=== PATIENT | female | born 1980 | race African-American/Black ===

== ENCOUNTER 2016-09-26 16:58 | Emergency (ER) | payer MEDICARE, OTHER ==
[~2016-09-26] VITALS: Ht 170.2 cm; Wt 156.5 kg
[~2016-09-26 16:58] MED LIST: ABILIFY; CLON1TAB3 PO; HYDR-971 PO; HYDR12.58 PO; LISI-334 PO; NAPR500T PO; NORE0.355 PO; OXYC-328 PO; PALI3TAB2 PO; PRESTIQ; SENN1TAB70 PO; TRAZADON PO
[2016-09-26] MEDS ORDERED: diphenhydrAMINE HCL 25 MG CAPSULE PO ONE (17:30)
[2016-09-26] MEDS ORDERED: METOCLOPRAMIDE 10 MG TABLET. PO ONE (17:30)
[2016-09-26] MEDS ORDERED: cloNIDine HCL 0.1 MG TABLET PO ONE (17:30)
--- NOTE | 2016-09-26 17:34 | PHYS DOC ---
Past Medical History Past Medical History: Hypertension Additional Past Medical Histor: BORDERLINE PERSONALITY DISORDER, insomnia, social anxiety, Past Surgical History: Cholecystectomy Alcohol Use: None Drug Use: None Adult General Chief Complaint Chief Complaint: HEADACHE HPI HPI Patient is a 36 year old female sits to the emergency department stating that she has had a headache for the last 3 months. She states that she has history of high blood pressure although his been taking medications for the last year. Patient states that her headache has been so bad that it's a pressure type feeling in which she has been unable to function. Patient states that she has sensitivity lights but denies any sensitivity to sound. She also states that she has sensitivity to smells that causes her to be nauseated. She also states that she's been having some chest pressure and chest discomfort that goes up into her right neck. Patient states occasionally she has shortness of air difficulty breathing although she does not have that today. She also continues to state that she does have some history of swelling in her lower extremities although today that that has not been the case. Patient states she has taken aspirin for the pain and discomfort. She states this is not relieved any of her headache. Patient states that her mother brought her here to the emergency department. Review of Systems Review of Systems Constitutional: Denies fever or chills [] Eyes: Denies change in visual acuity, redness, or eye pain [] HENT: Denies nasal congestion or sore throat [] Respiratory: Denies cough or shortness of breath [] Cardiovascular: No additional information not addressed in HPI [] GI: Denies abdominal pain, nausea, vomiting, bloody stools or diarrhea [] : Denies dysuria or hematuria [] Musculoskeletal: Denies back pain or joint pain [] Integument: Denies rash or skin lesions [] Neurologic: headache, denies focal weakness or sensory changes [] Endocrine: Denies polyuria or polydipsia [] Current Medications Current Medications Current Medications Medications (Trade) Dose Ordered Sig/Brendon Start Time Stop Time Status Last Admin Dose Admin Clonidine HCl (Catapres) 0.2 mg 1X ONCE 09/26/16 17:30 09/26/16 17:35 DC 09/26/16 18:23 0.2 MG Diphenhydramine HCl (Benadryl) 25 mg 1X ONCE 09/26/16 17:30 09/26/16 17:35 DC 09/26/16 18:23 25 MG Metoclopramide HCl (Reglan) 10 mg 1X ONCE 09/26/16 17:30 09/26/16 17:35 DC 09/26/16 18:23 10 MG Allergies Allergies Allergies Coded Allergies Type Severity Reaction Last Updated Verified No Known Drug Allergies 05/03/15 No Physical Exam Physical Exam Constitutional: Well developed, well nourished, no acute distress, non-toxic appearance. [] HENT: Normocephalic, atraumatic, bilateral external ears normal, oropharynx moist, no oral exudates, nose normal. Bilateral tympanic membranes appear to be normal throat with no erythematous no drainage or discharge noted no exudate. Eyes: PERRLA, EOMI, conjunctiva normal, no discharge. [] Neck: Normal range of motion, no tenderness, supple, no stridor. [] Cardiovascular:Heart rate regular rhythm, no murmur [] Lungs & Thorax: Bilateral breath sounds clear to auscultation [] Skin: Warm, dry, no erythema, no rash. [] Back: No tenderness Extremities: No tenderness, no cyanosis, no clubbing, ROM intact, no edema. [] Neurologic: Alert and oriented X 3, normal motor function, normal sensory function, no focal deficits noted. Numerous 2 through 12 intact. No nystagmus noted although patient states that during the finger to nose increases her headache and cause problems with her eyes. It was noted to have equal cloth tester bilaterally. Psychologic: Affect normal, judgement normal, mood normal. [] Current Patient Data Vital Signs Vital Signs Date Time Temp Pulse Resp B/P (MAP) Pulse Ox O2 Delivery O2 Flow Rate FiO2 09/26/16 18:38 72 13 131/75 (93) 99 09/26/16 17:40 Room Air 09/26/16 17:12 98.2 98.2 Lab Values Laboratory Tests Test 09/26/16 16:26 09/26/16 17:14 09/26/16 17:55 POC Urine HCG, Qualitative Hcg negative (Negative) Urine Color Yellow Urine Clarity Cloudy Urine pH 7.0 Urine Specific [place] <=1.005 Urine Protein Negative mg/dL (NEG-TRACE) Urine Glucose (UA) Negative mg/dL (NEG) Urine Ketones (Stick) Negative mg/dL (NEG) Urine Blood Large (NEG) Urine Nitrite Negative (NEG) Urine Bilirubin Negative (NEG) Urine Urobilinogen Dipstick 0.2 mg/dL (0.2 mg/dL) Urine Leukocyte Esterase Small (NEG) Urine RBC Tntc /HPF (0-2) Urine WBC Occ /HPF (0-4) Urine Squamous Epithelial Cells Occ /LPF Urine Amorphous Sediment Present /HPF Urine Bacteria Few /HPF (0-FEW) White Blood Count 6.3 x10^3/uL (4.0-11.0) Red Blood Count 4.21 x10^6/uL (3.50-5.40) Hemoglobin 11.4 g/dL (12.0-15.5) L Hematocrit 35.1 % (36.0-47.0) L Mean Corpuscular Volume 84 fL (79-100) Mean Corpuscular Hemoglobin 27 pg (25-35) Mean Corpuscular Hemoglobin Concent 32 g/dL (31-37) Red Cell Distribution Width 17.3 % (11.5-14.5) H Platelet Count 383 x10^3/uL (140-400) Neutrophils (%) (Auto) 56 % (31-73) Lymphocytes (%) (Auto) 26 % (24-48) Monocytes (%) (Auto) 11 % (0-9) H Eosinophils (%) (Auto) 6 % (0-3) H Basophils (%) (Auto) 1 % (0-3) Neutrophils # (Auto) 3.5 x10^3uL (1.8-7.7) Lymphocytes # (Auto) 1.7 x10^3/uL (1.0-4.8) Monocytes # (Auto) 0.7 x10^3/uL (0.0-1.1) Eosinophils # (Auto) 0.4 x10^3/uL (0.0-0.7) Basophils # (Auto) 0.1 x10^3/uL (0.0-0.2) Sodium Level 139 mmol/L (136-145) Potassium Level 4.0 mmol/L (3.5-5.1) Chloride Level 105 mmol/L (98-107) Carbon Dioxide Level 27 mmol/L (21-32) Anion Gap 7 (6-14) Blood Urea Nitrogen 7 mg/dL (7-20) Creatinine 1.0 mg/dL (0.6-1.0) Estimated GFR (Cockcroft-Gault) 76.8 BUN/Creatinine Ratio 7 (6-20) Glucose Level 98 mg/dL (70-99) Calcium Level 8.8 mg/dL (8.5-10.1) Total Bilirubin 0.3 mg/dL (0.2-1.0) Aspartate Amino Transferase (AST) 13 U/L (15-37) L Alanine Aminotransferase (ALT) 18 U/L (14-59) Alkaline Phosphatase 76 U/L (46-116) Troponin I Quantitative < 0.017 ng/mL (0.000-0.055) Total Protein 7.3 g/dL (6.4-8.2) Albumin 3.4 g/dL (3.4-5.0) Albumin/Globulin Ratio 0.9 (1.0-1.7) L Laboratory Tests 09/26/16 17:55 Laboratory Tests 09/26/16 17:55 EKG EKG EKG was completed at 1739 with the sinus rhythm noted with a heart rate of 74 no STEMI noted per Dr Sal[] Radiology/Procedures Radiology/Procedures [facility] [address] [place] [address] IMAGING REPORT Signed PATIENT: LESA HANCOCK ACCOUNT: [id number] : 1980 LOCATION: ER AGE: 36 SEX: F EXAM STATUS: REG ER ORD. PHYSICIAN: VIRGIL MONTALVO [employer] REASON: elevated BP and headache PROCEDURE: CT HEAD WO CONTRAST CT head without intravenous contrast History: Migraine for 3 months. Comparison: None. Technique: Axial images are obtained of the head from the skull base through the vertex without IV contrast. Exposure: One or more of the following individualized dose reduction techniques were utilized for this examination: 1. Automated exposure control 2. Adjustment of the mA and/or kV according to patient size 3. Use of iterative reconstruction technique Findings: The ventricles are appropriate in size, shape, and location for the patient's age. No obvious intracranial mass, mass-effect, midline shift, hemorrhage or obvious acute infarction is identified. Basilar cisterns are patent. Bone windows demonstrate no acute calvarial abnormality. The visualized paranasal sinuses appear clear. Impression: 1. No acute intracranial process. Electronically signed by: Alexi Rojo MD (09/26/2016 5:43 PM) DICTATED and SIGNED BY: ALEXI ROJO MD DATE: 09/26/161741 CC: VIRGIL MONTALVO APRN; NO PCP; NON,STAFF ~ [] Course & Med Decision Making Course & Med Decision Making Pertinent Labs and Imaging studies reviewed. (See chart for details) CT scan was negative, CMP negative troponin level negative patient's urine was positive for urinary tract infection. Patient's blood pressure is within normal limits now. Patient will be discharged home with clonidine prescription with recommendations to follow-up with her primary care physician. Signs and symptoms to return back to emergency department as been provided. Patient agrees with discharge instructions treatment regimens and follow-up recommendations. [] Dragon Disclaimer Dragon Disclaimer This electronic medical record was generated, in whole or in part, using a voice recognition dictation system. Departure Departure Impression: Primary Impression: HTN (hypertension) Additional Impression: UTI (lower urinary tract infection) Disposition: 01 HOME, SELF-CARE Condition: STABLE Referrals: NO PCP (PCP) Patient Instructions: Hypertension, Urinary Tract Infection, [id number] Additional Instructions: Your CT scan here chemistries and CBC within normal limits. The pressure has responded nicely with the clonidine. You will be discharged home with a prescription for clonidine which she can take on a daily basis. Urine was positive for urinary tract infection. Drink plenty of fluids such as water and cranberry juice. Avoid cranberry juice cocktail, carbonate beverages, citrus fruits and alcohol sees her considered irritants to the bladder. Follow-up with your primary care physician within the next 3-5 days. Return back to emergency prior signs symptoms of become worse. Scripts Nitrofurantoin Monohyd/M-Cryst (MACROBID 100 MG CAPSULE) 100 Mg Capsule 1 CAP PO BID, #14 CAP Prov: VIRGIL MONTALVO APRN 09/26/16 Clonidine Hcl (CLONIDINE HCL) 0.1 Mg Tablet 0.1 MG PO DAILY, #20 TAB Prov: VIRGIL MONTALVO APRN 09/26/16 Problem Qualifiers VIRGIL MONTALVO APRN Sep 26, 2016 17:34
[2016-09-26 17:39] LABS: BILIRUBIN,URINE NEGATIVE (NEG); GLUCOSE,URINE NEGATIVE (NEG); NITRITE,URINE NEGATIVE (NEG); PROTEIN,URINE NEGATIVE (NEG-TRACE); UROBILINOGEN,URINE 0.2 mg/dL (0.2 mg/dL)
--- NOTE | 2016-09-26 17:46 | RAD ---
CT head without intravenous contrast History: Migraine for 3 months. Comparison: None. Technique: Axial images are obtained of the head from the skull base through the vertex without IV contrast. Exposure: One or more of the following individualized dose reduction techniques were utilized for this examination: 1. Automated exposure control 2. Adjustment of the mA and/or kV according to patient size 3. Use of iterative reconstruction technique Findings: The ventricles are appropriate in size, shape, and location for the patient's age. No obvious intracranial mass, mass-effect, midline shift, hemorrhage or obvious acute infarction is identified. Basilar cisterns are patent. Bone windows demonstrate no acute calvarial abnormality. The visualized paranasal sinuses appear clear. Impression: 1. No acute intracranial process. Electronically signed by: Alexi Yoder MD (09/26/2016 5:43 PM)
[2016-09-26 17:48] LABS: BACTERIA,URINE FEW /HPF (0-FEW); RBC,URINE TNTC /HPF (0-2); SQUAMOUS EPITHELIAL CELL,UR OCC /LPF; WBC,URINE OCC /HPF (0-4)
--- NOTE | 2016-09-26 17:50 | EKG ---
[facility] [address] [place] [address] Test Date: 2016-09-26 Test Time: 17:39:29 Pat Name: LESA HANCOCK Department: Room: Gender: F [employer]: : 1980 Requested By: VIRGIL MONTALVO Order Number: [id number] Reading MD: Gigi Gonzales Measurements Intervals [place] Rate: 74 P: 30 W[place]: 162 QRS: -5 QRSD: 92 T: 9 QT: 380 QTc: 422 Interpretive Statements SINUS RHYTHM LEFTWARD AXIS T WAVE INVERSION IN LEAD III RI6.01 Unconfirmed report Compared to ECG 06/21/2015 17:42:41 Left-axis deviation now present Sinus tachycardia no longer present Electronically Signed On 09-30-2016 10:38:47 CDT by Gigi Gonzales
[2016-09-26 18:05] LABS: BASO # 0.1 x10^3/uL (0.0-0.2); BASO % 1 % (0-3); EOS % 6 % (0-3); HEMATOCRIT 35.1 % (36.0-47.0); HEMOGLOBIN 11.4 g/dL (12.0-15.5); LYMPH # 1.7 x10^3/uL (1.0-4.8); LYMPH % 26 % (24-48); MEAN CORPUSCULAR HEMOGLOBIN 27 pg (25-35); MEAN CORPUSCULAR HGB CONC 32 g/dL (31-37); MEAN CORPUSCULAR VOLUME 84 fL (79-100); MONO % 11 % (0-9); NEUT % 56 % (31-73); PLATELET COUNT 383 x10^3/uL (140-400); RED BLOOD COUNT 4.21 x10^6/uL (3.50-5.40); RED CELL DISTRIBUTION WIDTH 17.3 % (11.5-14.5); WHITE BLOOD COUNT 6.3 x10^3/uL (4.0-11.0)
[2016-09-26 18:20] LABS: CALCIUM 8.8 mg/dL (8.5-10.1); GFR 76.8
[2016-09-26 18:26] LABS: ALBUMIN 3.4 g/dL (3.4-5.0); ALBUMIN/GLOBULIN RATIO 0.9 (1.0-1.7); TOTAL BILIRUBIN 0.3 mg/dL (0.2-1.0); TOTAL PROTEIN 7.3 g/dL (6.4-8.2)
[2016-09-26 18:38] VITALS: BP 131/75
[2016-09-26] MEDS ORDERED: CLON0.1T PO (18:57)
[2016-09-26] MEDS ORDERED: NITR100C62 PO (18:57)
== END 2016-09-26 19:05 | disposition home or self-care (01) ==
LOC: ER 16:58
DX: I10 Essential (primary) hypertension (principal); N39.0 Urinary tract infection, site not specified; G43.909 Migraine, unspecified, not intractable, without status migrainosus; R07.89 Other chest pain; Z90.49 Acquired absence of other specified parts of digestive tract; G47.00 Insomnia, unspecified
CPT/HCPCS: 36415; 70450; 80053; 81001; 81025; 84484; 85027; 87086; 93005; 99285; J8597; Q0163

== ENCOUNTER 2016-12-19 15:14 | Emergency (ER) | payer MEDICARE, MEDICAID ==
[~2016-12-19] VITALS: Ht 170.2 cm; Wt 152.0 kg
[~2016-12-19 15:14] MED LIST changes: +CLON0.1T PO; +NITR100C62 PO
--- NOTE | 2016-12-19 16:14 | ED.ADGEN ---
Past Medical History Past Medical History: Hypertension, UTI Additional Past Medical Histor: BORDERLINE PERSONALITY DISORDER, insomnia, social anxiety, Past Surgical History: Other Additional Past Surgical Histo: GALLSTONE REMOVAL Alcohol Use: None Drug Use: None Adult General Chief Complaint Chief Complaint: ABDOMINAL PAIN HPI HPI Patient is a 36 year old woman, history of borderline personality disorder, anxiety, obesity, hypertension for which she is not currently taking medication , who presents to the emergency department with complaint of several months of worsening abdominal bloating, cramping, nausea and vomiting. Patient states the pain was worse and nausea is worse today, prompting her to come to the ED for evaluation. She she is not previously evaluated for the symptoms. She denies any injuries, any fevers or chills, any urinary complaints, states that she's also been experiencing diarrhea which is described as loose brown stool especially in the morning along with worsening nausea in the morning. States she is also experiencing headaches in the side of her head intermittently over the same period time. No weakness, numbness or tingling, no vision changes. Denies any drugs, alcohol or cigarettes. Blood pressure is currently 153/88, with heart rate of 87. Patient denies any swelling extremities, any rashes, states that she had her gallbladder removed 2 years ago no other abdominal surgeries. Review of Systems Review of Systems Constitutional: Denies fever or chills. [] Eyes: Denies change in visual acuity. [] HENT: Denies nasal congestion or sore throat. [] Respiratory: Denies cough or shortness of breath. [] Cardiovascular: Denies chest pain or edema. [] GI: Diffuse cramping abdominal pain and bloating, nausea, vomiting, no bloody stools or bloody emesis, positive for diarrhea. : Denies dysuria. [] Musculoskeletal: Denies back pain or joint pain. [] Integument: Denies rash. [] Neurologic: Denies headache, focal weakness or sensory changes. [] Endocrine: Denies polyuria or polydipsia. [] Lymphatic: Denies swollen glands. [] Psychiatric: Denies depression or anxiety. [] Current Medications Current Medications Current Medications Medications (Trade) Dose Ordered Sig/Brendon Start Time Stop Time Status Last Admin Dose Admin Amlodipine Besylate (Norvasc) 10 mg 1X ONCE 12/19/16 18:45 12/19/16 18:46 DC 12/19/16 18:49 10 MG Ciprofloxacin (Cipro) 500 mg 1X ONCE 12/19/16 18:45 12/19/16 18:46 DC 12/19/16 18:48 500 MG Info (Do NOT chart on this entry -- for MONITORING) 1 each PRN DAILY PRN 12/19/16 17:15 12/19/16 18:59 DC Iohexol (Omnipaque 300 Mg/ml) 75 ml 1X ONCE 12/19/16 17:00 12/19/16 17:01 DC 12/19/16 17:00 75 ML Ketorolac Tromethamine (Toradol) 10 mg 1X ONCE 12/19/16 16:15 12/19/16 16:16 DC 12/19/16 16:23 10 MG Metronidazole (Flagyl) 500 mg 1X ONCE 12/19/16 18:45 12/19/16 18:46 DC 12/19/16 18:48 500 MG Ondansetron HCl (Zofran) 4 mg 1X ONCE 12/19/16 16:15 12/19/16 16:16 DC 12/19/16 16:22 4 MG Allergies Allergies Allergies Coded Allergies Type Severity Reaction Last Updated Verified No Known Drug Allergies 05/03/15 No Physical Exam Physical Exam Constitutional: Well developed, well nourished, no acute distress, non-toxic appearance. [] HENT: Normocephalic, atraumatic, bilateral external ears normal, oropharynx moist, no oral exudates, nose normal. [] Eyes: PERRLA, EOMI, conjunctiva normal, no discharge. [] Neck: Normal range of motion, no tenderness, supple, no stridor. [] Cardiovascular:Heart rate regular rhythm, no murmur, S1, S2, no rubs or gallops. [] Lungs & Thorax: Bilateral breath sounds clear to auscultation, no wheezing, rhonchi, rales. No chest wall crepitus or tenderness. [] Abdomen: Bowel sounds normal, soft, mildly tender to palpation across the periumbilical and epigastric regions of the abdomen. No rebound, rigidity, no guarding,, no masses, no pulsatile masses. [] Skin: Warm, dry, no erythema, no rash. [] Back: No tenderness, no CVA tenderness. [] Extremities: No tenderness, no cyanosis, no clubbing, ROM intact, no edema. Negative Homans sign.[] Neurologic: Alert and oriented X 3, normal motor function, normal sensory function, no focal deficits noted. [] Psychologic: Affect normal, judgement normal, mood normal. [] Current Patient Data Vital Signs Vital Signs Date Time Temp Pulse Resp B/P (MAP) Pulse Ox O2 Delivery O2 Flow Rate FiO2 12/19/16 18:49 82 158/111 12/19/16 18:18 20 97 Room Air 12/19/16 15:25 99.0 99.0 Lab Values Laboratory Tests Test 12/19/16 15:47 12/19/16 16:15 12/19/16 16:30 POC Urine HCG, Qualitative Hcg negative (Negative) White Blood Count 5.7 x10^3/uL (4.0-11.0) Red Blood Count 4.08 x10^6/uL (3.50-5.40) Hemoglobin 11.1 g/dL (12.0-15.5) L Hematocrit 34.3 % (36.0-47.0) L Mean Corpuscular Volume 84 fL (79-100) Mean Corpuscular Hemoglobin 27 pg (25-35) Mean Corpuscular Hemoglobin Concent 32 g/dL (31-37) Red Cell Distribution Width 17.2 % (11.5-14.5) H Platelet Count 357 x10^3/uL (140-400) Neutrophils (%) (Auto) 52 % (31-73) Lymphocytes (%) (Auto) 32 % (24-48) Monocytes (%) (Auto) 11 % (0-9) H Eosinophils (%) (Auto) 4 % (0-3) H Basophils (%) (Auto) 1 % (0-3) Neutrophils # (Auto) 3.0 x10^3uL (1.8-7.7) Lymphocytes # (Auto) 1.9 x10^3/uL (1.0-4.8) Monocytes # (Auto) 0.6 x10^3/uL (0.0-1.1) Eosinophils # (Auto) 0.2 x10^3/uL (0.0-0.7) Basophils # (Auto) 0.1 x10^3/uL (0.0-0.2) Sodium Level 138 mmol/L (136-145) Potassium Level 3.7 mmol/L (3.5-5.1) Chloride Level 104 mmol/L (98-107) Carbon Dioxide Level 28 mmol/L (21-32) Anion Gap 6 (6-14) Blood Urea Nitrogen 9 mg/dL (7-20) Creatinine 1.0 mg/dL (0.6-1.0) Estimated GFR (Cockcroft-Gault) 76.8 BUN/Creatinine Ratio 9 (6-20) Glucose Level 99 mg/dL (70-99) Calcium Level 8.5 mg/dL (8.5-10.1) Total Bilirubin 0.1 mg/dL (0.2-1.0) L Aspartate Amino Transferase (AST) 11 U/L (15-37) L Alanine Aminotransferase (ALT) 15 U/L (14-59) Alkaline Phosphatase 78 U/L (46-116) Total Protein 7.2 g/dL (6.4-8.2) Albumin 3.4 g/dL (3.4-5.0) Albumin/Globulin Ratio 0.9 (1.0-1.7) L Lipase 181 U/L (73-393) Urine Color Red Urine Clarity Turbid Urine pH 6.0 Urine Specific [place] 1.020 Urine Protein 100 mg/dL (NEG-TRACE) Urine Glucose (UA) Negative mg/dL (NEG) Urine Ketones (Stick) 15 mg/dL (NEG) Urine Blood Large (NEG) Urine Nitrite Negative (NEG) Urine Bilirubin Moderate (NEG) Urine Urobilinogen Dipstick 1.0 mg/dL (0.2 mg/dL) Urine Leukocyte Esterase Moderate (NEG) Urine RBC Tntc /HPF (0-2) Urine WBC 5-10 /HPF (0-4) Urine Squamous Epithelial Cells Occ /LPF Urine Bacteria 0 /HPF (0-FEW) Urine Test Negative (NEG) Urine Opiates Screen Neg (NEG) Urine Methadone Screen Neg (NEG) Urine Barbiturates Neg (NEG) Urine Phencyclidine Screen Neg (NEG) Urine Amphetamine/Methamphetamine Neg (NEG) Urine Benzodiazepines Screen Neg (NEG) Urine Cocaine Screen Neg (NEG) Urine Cannabinoids Screen Neg (NEG) Urine Ethyl Alcohol Neg (NEG) Laboratory Tests 12/19/16 16:15 Laboratory Tests 12/19/16 16:15 EKG EKG Not indicated.[] Radiology/Procedures Radiology/Procedures [][facility] [address] [place] [address] IMAGING REPORT Signed PATIENT: LESA HANCOCK ACCOUNT: [id number] : 1980 LOCATION: ER AGE: 36 SEX: F EXAM STATUS: REG ER ORD. PHYSICIAN: YANE GARY DO REASON: abd pain/bloating/N/V/D PROCEDURE: CT ABD PELV W/ IV CONTRST ONLY Examination: CT of the abdomen pelvis with IV contrast HISTORY: History of abdominal pain COMPARISON: None available Technique: Axial CT images of the abdomen pelvis were performed with IV contrast. Coronal and sagittal deformities are performed Exposure: One or more of the following individualized dose reduction techniques were utilized for this examination: 1. Automated exposure control 2. Adjustment of the mA and/or kV according to patient size 3. Use of iterative reconstruction technique FINDINGS: The visualized bibasilar lungs grossly appears unremarkable No evidence of free air identified in the abdomen. The visualized liver demonstrates hypodensity identified in the left lobe of the liver likely focal fat. The visualized spleen, adrenals grossly appears unremarkable. Cholecystectomy clips identified The stomach is mildly distended. The visualized pancreas grossly appears unremarkable The small bowel is nondilated. Feces and gas noted in the colon. Mild thickened appearance of the wall of the proximal descending colon could be nondistention or mild colitis. The appendix is normal. No bladder is mildly distended. The visualized uterus, adnexa grossly appears unremarkable. The bilateral kidneys enhance symmetrically. No evidence of lytic bony destructive lesion. IMPRESSION: 1. Mild thickened appearance of the descending colon with questionable minimal surrounding fat stranding probably secondary to nondistention or mild colitis. 2. Scattered colonic diverticula. Electronically signed by: Jimmie Koehler MD (12/19/2016 6:14 PM) [facility] DICTATED and SIGNED BY: JIMMIE KOEHLER MD DATE: 12/19/16 180 CC: YANE GARY DO; NO PCP ~ Course & Med Decision Making Course & Med Decision Making Pertinent Labs and Imaging studies reviewed. (See chart for details) H and with colitis noted on CT, obtained after discussion at bedside regarding risk versus benefits based on patient's symptoms and duration of abdominal pain with bloating. I discussed these findings at length at bedside with patient, but there for multiple causes, and that additional evaluation with GI is necessary appropriate. Patient received the initial metronidazole and Cipro in the ED without issue, with Bentyl, is feeling comfortable, tolerating medications without issue. Patient also be hypertensive in the ED, stated with a blood pressures of 170s over 111, was initiated on Norvasc in the ED, importance of establishing a primary care provider for follow-up and titration of medications and additional evaluation discussed in detail as well. Patient voiced understanding and agreement, tolerated first dose of medication the ED without issue. Patient is given prescription for antibiotics, Bentyl, Zofran, and Norvasc, along with clear and detailed return instructions follow-up instructions and precautions. Patient voiced understanding and agreement with all instructions and precautions, discharged home with plan as stated above. Dragon Disclaimer Dragon Disclaimer This electronic medical record was generated, in whole or in part, using a voice recognition dictation system. Departure Impression: Primary Impression: Colitis Additional Impression: Hypertension Disposition: 01 HOME, SELF-CARE Condition: IMPROVED Scripts Amlodipine Besylate (NORVASC) 10 Mg Tablet 10 MG PO DAILY, #30 TAB Prov: YANE GARY DO 12/19/16 Ondansetron Hcl (ZOFRAN) 4 Mg Tablet 1 TAB PO PRN Q8HRS Y for NAUSEA, #20 TAB Prov: YANE GARY DO 12/19/16 Dicyclomine Hcl (BENTYL) 10 Mg Capsule 10 MG PO PRN QID Y for ABDOMINAL PAIN, #24 TAB Prov: YANE GARY DO 12/19/16 Ciprofloxacin Hcl (CIPRO) 500 Mg Tablet 1 TAB PO BID, #14 TAB Prov: YANE GARY DO 12/19/16 Metronidazole (METRONIDAZOLE) 500 Mg Tablet 1 TAB PO TID, #24 TAB Prov: YANE GARY DO 12/19/16 Problem Qualifiers YANE GARY DO Dec 19, 2016 16:14
[2016-12-19] MEDS ORDERED: ONDANSETRON PF 4 MG/2 ML VIAL. IV ONE (16:15)
[2016-12-19] MEDS ORDERED: KETOROLAC TROMETHAMINE 30 MG/ML INJ. IV ONE (16:15)
[2016-12-19 16:32] LABS: BASO # 0.1 x10^3/uL (0.0-0.2); BASO % 1 % (0-3); EOS % 4 % (0-3); HEMATOCRIT 34.3 % (36.0-47.0); HEMOGLOBIN 11.1 g/dL (12.0-15.5); LYMPH # 1.9 x10^3/uL (1.0-4.8); LYMPH % 32 % (24-48); MEAN CORPUSCULAR HEMOGLOBIN 27 pg (25-35); MEAN CORPUSCULAR HGB CONC 32 g/dL (31-37); MEAN CORPUSCULAR VOLUME 84 fL (79-100); MONO % 11 % (0-9); NEUT % 52 % (31-73); PLATELET COUNT 357 x10^3/uL (140-400); RED BLOOD COUNT 4.08 x10^6/uL (3.50-5.40); RED CELL DISTRIBUTION WIDTH 17.2 % (11.5-14.5); WHITE BLOOD COUNT 5.7 x10^3/uL (4.0-11.0)
[2016-12-19 16:34] LABS: CALCIUM 8.5 mg/dL (8.5-10.1); GFR 76.8; POTASSIUM 3.7 mmol/L (3.5-5.1)
[2016-12-19 16:40] LABS: ALBUMIN 3.4 g/dL (3.4-5.0); ALBUMIN/GLOBULIN RATIO 0.9 (1.0-1.7); TOTAL BILIRUBIN 0.1 mg/dL (0.2-1.0); TOTAL PROTEIN 7.2 g/dL (6.4-8.2)
[2016-12-19 16:54] LABS: BILIRUBIN,URINE MODERATE (NEG); GLUCOSE,URINE NEGATIVE (NEG); NITRITE,URINE NEGATIVE (NEG); PROTEIN,URINE 100 mg/dL (NEG-TRACE)
[2016-12-19] MEDS ORDERED: IOHEXOL 300 MG/ML 75 ML VIAL IV ONE (17:00)
[2016-12-19 17:10] LABS: BACTERIA,URINE 0 /HPF (0-FEW); RBC,URINE TNTC /HPF (0-2); SQUAMOUS EPITHELIAL CELL,UR OCC /LPF
[2016-12-19] MEDS ORDERED: CONTRAST GIVEN MC PRN (17:15)
[2016-12-19 17:20] LABS: NEG OBC UR NEG; POS OBC UR POS
[2016-12-19 17:23] LABS: BARBITURATES NEG (NEG); BENZODIAZEPINES NEG (NEG); CANNABINOIDS NEG (NEG); COCAINE NEG (NEG); METHADONE NEG (NEG); OPIATES NEG (NEG); PHENCYCLIDINE NEG (NEG)
--- NOTE | 2016-12-19 18:18 | RAD ---
Examination: CT of the abdomen pelvis with IV contrast HISTORY: History of abdominal pain COMPARISON: None available Technique: Axial CT images of the abdomen pelvis were performed with IV contrast. Coronal and sagittal deformities are performed Exposure: One or more of the following individualized dose reduction techniques were utilized for this examination: 1. Automated exposure control 2. Adjustment of the mA and/or kV according to patient size 3. Use of iterative reconstruction technique FINDINGS: The visualized bibasilar lungs grossly appears unremarkable No evidence of free air identified in the abdomen. The visualized liver demonstrates hypodensity identified in the left lobe of the liver likely focal fat. The visualized spleen, adrenals grossly appears unremarkable. Cholecystectomy clips identified The stomach is mildly distended. The visualized pancreas grossly appears unremarkable The small bowel is nondilated. Feces and gas noted in the colon. Mild thickened appearance of the wall of the proximal descending colon could be nondistention or mild colitis. The appendix is normal. No bladder is mildly distended. The visualized uterus, adnexa grossly appears unremarkable. The bilateral kidneys enhance symmetrically. No evidence of lytic bony destructive lesion. IMPRESSION: 1. Mild thickened appearance of the descending colon with questionable minimal surrounding fat stranding probably secondary to nondistention or mild colitis. 2. Scattered colonic diverticula. Electronically signed by: Jimmie Koehler MD (12/19/2016 6:14 PM) [facility]
[2016-12-19] MEDS ORDERED: ONDA4TAB7 PO (18:37)
[2016-12-19] MEDS ORDERED: CIPR500T94 PO (18:37)
[2016-12-19] MEDS ORDERED: METR500T8 PO (18:37)
[2016-12-19] MEDS ORDERED: DICY10CA53 PO (18:37)
[2016-12-19] MEDS ORDERED: AMLO10TA4 PO (18:44)
[2016-12-19] MEDS ORDERED: amLODIPine BESYLATE 5 MG TABLET PO ONE (18:45)
[2016-12-19] MEDS ORDERED: metroNIDAZOLE 500 MG TABLET PO ONE (18:45)
[2016-12-19] MEDS ORDERED: CIPROFLOXACIN HCL 250 MG TABLET. PO ONE (18:45)
[2016-12-19 18:49] VITALS: BP 158/111
== END 2016-12-19 18:59 | disposition home or self-care (01) ==
LOC: ER 15:14
DX: K52.9 Noninfective gastroenteritis and colitis, unspecified (principal); I10 Essential (primary) hypertension; R51 Headache; E66.9 Obesity, unspecified; F60.3 Borderline personality disorder; Z87.440 Personal history of urinary (tract) infections
CPT/HCPCS: 36415; 74177; 80053; 80307; 81001; 81025; 83690; 85025; 96374; 96375; 99285; J1885; J2405; Q9967; G0479

== ENCOUNTER 2016-12-30 17:35 | Emergency (ER) | payer MEDICARE, MEDICAID ==
[~2016-12-30] VITALS: Ht 170.2 cm; Wt 136.1 kg
[~2016-12-30 17:35] MED LIST changes: +AMLO10TA4 PO; +CIPR500T94 PO; +DICY10CA53 PO; +METR500T8 PO; +ONDA4TAB7 PO
--- NOTE | 2016-12-30 18:33 | PHYS DOC ---
Past Medical History Past Medical History: Hypertension, UTI Additional Past Medical Histor: BORDERLINE PERSONALITY DISORDER, insomnia, social anxiety, Past Surgical History: Cholecystectomy Alcohol Use: None Drug Use: None Adult General Chief Complaint Chief Complaint: DEPRESSION HPI HPI Patient is a 36 year old female who presents with several day history of gradual onset of increasing depression, moderate severity; denies SI/HI, thoughts of self-harm or hallucinations. Does not take antidepressants due to side effects. Reports 1 prior attempt at self-harm. hypertension and claims compliance with her multiple meds for her blood pressure. Review of Systems Review of Systems Constitutional: Denies fever or chills [] Eyes: Denies change in visual acuity, redness, or eye pain [] HENT: Denies nasal congestion or sore throat [] Respiratory: Denies cough or shortness of breath [] Cardiovascular: No additional information not addressed in HPI [] GI: Denies abdominal pain, nausea, vomiting, bloody stools or diarrhea [] : Denies dysuria or hematuria [] Musculoskeletal: Denies back pain or joint pain [] Integument: Denies rash or skin lesions [] Neurologic: Denies headache, focal weakness or sensory changes [] Endocrine: Denies polyuria or polydipsia [] Allergies Allergies Allergies Coded Allergies Type Severity Reaction Last Updated Verified No Known Drug Allergies 05/03/15 No Physical Exam Physical Exam Constitutional: Well developed, well nourished, no acute distress, non-toxic appearance. [] HENT: Normocephalic, atraumatic, bilateral external ears normal, oropharynx moist, no oral exudates, nose normal. [] Eyes: PERRLA, EOMI, conjunctiva normal, no discharge. [] Neck: Normal range of motion, no tenderness, supple, no stridor. [] Cardiovascular:Heart rate regular rhythm, no murmur [] Lungs & Thorax: Bilateral breath sounds clear to auscultation [] Abdomen: Bowel sounds normal, soft, no tenderness, no masses, no pulsatile masses. [] Skin: Warm, dry, no erythema, no rash. [] Back: No tenderness, no CVA tenderness. [] Extremities: No tenderness, no cyanosis, no clubbing, ROM intact, no edema. [] Neurologic: Alert and oriented X 3, normal motor function, normal sensory function, no focal deficits noted. [] Psychologic: Depressed affect, judgement normal, mood depressed. [] Current Patient Data Vital Signs Vital Signs Date Time Temp Pulse Resp B/P (MAP) Pulse Ox O2 Delivery O2 Flow Rate FiO2 12/30/16 17:40 99.3 115 18 165/100 (121) 95 Room Air 99.3 EKG EKG [] Radiology/Procedures Radiology/Procedures [] Course & Med Decision Making Course & Med Decision Making Pertinent Labs and Imaging studies reviewed. (See chart for details) Pat team is been consult for further evaluation and follow-up care. Pat team does not feel the patient's a threat to herself or others and is provided her with outpatient follow-up.[] Dragon Disclaimer Dragon Disclaimer This electronic medical record was generated, in whole or in part, using a voice recognition dictation system. Departure Departure Impression: Primary Impression: Depression Disposition: 01 HOME, SELF-CARE Condition: STABLE Referrals: NO PCP (PCP) Patient Instructions: Depression, Adult, [id number] ODESSA CERON MD Dec 30, 2016 18:33
[2016-12-30 20:49] VITALS: BP 128/78
== END 2016-12-30 20:50 | disposition home or self-care (01) ==
LOC: ER 17:35
DX: F32.9 Major depressive disorder, single episode, unspecified (principal); I10 Essential (primary) hypertension; F60.3 Borderline personality disorder; F41.9 Anxiety disorder, unspecified; Z87.440 Personal history of urinary (tract) infections
CPT/HCPCS: 99284

== ENCOUNTER → 2017-02-12 | Day surgery (SDC) | payer MEDICARE, MEDICAID ==
[~2017-02-12] MED LIST changes: +HYDROmorphone 2 MG/ML VIAL IV PRN; +IV RINGERS,LACTATED 1000ML 1,000 ML IV SCH; +LIDOCAINE 1% PF 2 ML VIAL. ID PRN; +LIDOCAINE 2% PF Vial for OR 5 ML VIAL. ONE; +MORPHINE SULFATE 2 MG/ML DISP.SYRIN. IV PRN; +NAPR-683 PO; -NAPR500T PO; +PRED50TA PO; +PROAIR HFA8.5 GM INH; +PROCHLORPERAZINE 10 MG/2 ML VIAL. IV PRN; +PROPOFOL 20 ML IV ONE; +fentaNYL PF VIAL 100 MCG/2 ML VIAL IV PRN
[2017-02-12 08:07] LABS: NEG OBC UR NEG; POS OBC UR POS
[2017-02-12 09:35] VITALS: BP 153/81
== END | disposition home or self-care (01) ==
LOC: ENDOS 07:38
PROVIDERS: ATTEND Internal Medicine Gastroenterology
DX: K22.2 Esophageal obstruction (principal); K29.50 Unspecified chronic gastritis without bleeding; D64.9 Anemia, unspecified; F41.9 Anxiety disorder, unspecified; F32.9 Major depressive disorder, single episode, unspecified; G47.30 Sleep apnea, unspecified; F17.210 Nicotine dependence, cigarettes, uncomplicated; Z87.440 Personal history of urinary (tract) infections; Z98.890 Other specified postprocedural states
CPT/HCPCS: 43239; 43450; 81025; 88305; 88342; J2704; J2001

== ENCOUNTER → 2017-02-28 | Outpatient (CLI) | payer MEDICARE, MEDICAID ==
[2017-02-12 09:35] VITALS: BP 153/81
[~2017-02-28] MED LIST changes: -HYDROmorphone 2 MG/ML VIAL IV PRN; -IV RINGERS,LACTATED 1000ML 1,000 ML IV SCH; -LIDOCAINE 1% PF 2 ML VIAL. ID PRN; -LIDOCAINE 2% PF Vial for OR 5 ML VIAL. ONE; -MORPHINE SULFATE 2 MG/ML DISP.SYRIN. IV PRN; -PROCHLORPERAZINE 10 MG/2 ML VIAL. IV PRN; -PROPOFOL 20 ML IV ONE; -fentaNYL PF VIAL 100 MCG/2 ML VIAL IV PRN
--- NOTE | 2017-02-28 09:16 | RAD ---
MRI Brain without contrast History: Increasing migraines over the last year, blurred vision, dizziness, weakness Technique: Multiplanar, multisequential noncontrast MR imaging was performed of the brain. Contrast: None Comparison: None Findings: There is no evidence of an acute infarct or cytotoxic edema. The ventricles, sulci, and cisterns are within normal limits in size and configuration. There is no significant midline shift, intra-axial mass effect, or focal abnormal extra-axial fluid collection. There is no significant signal abnormality of the brain parenchyma. There is preservation of the major intracranial flow-voids at the skull base. The mastoid air cells are aerated. The cerebellar tonsils are normal in location. There is no significant abnormality of the pineal gland or pituitary gland. Paranasal sinuses are overall aerated. There is slightly disconjugate gaze. There is preserved marrow signal of the clivus. Impression: 1. There is no significant intracranial abnormality. Electronically signed by: Herrera Ramirez MD (02/28/2017 9:12 AM) [id number]
== END | disposition home or self-care (01) ==
LOC: MRI 08:06
PROVIDERS: ATTEND Psychiatry & Neurology Neurology with Special Qualifications in Child Neurology
DX: G43.019 Migraine without aura, intractable, without status migrainosus (principal); H53.8 Other visual disturbances; R42 Dizziness and giddiness; R53.1 Weakness
CPT/HCPCS: 70551

== ENCOUNTER 2017-04-02 18:16 | Emergency (ER) | payer MEDICARE, MEDICAID ==
[~2017-04-02] VITALS: Ht 170.2 cm; Wt 136.1 kg
[~2017-04-02 18:16] MED LIST changes: -PRED50TA PO; -PROAIR HFA8.5 GM INH
[2017-04-02 18:28] VITALS: BP 150/91
[2017-04-02] MEDS ORDERED: PROAIR HFA8.5 GM INH (18:49)
[2017-04-02] MEDS ORDERED: PRED50TA PO (18:49)
--- NOTE | 2017-04-02 18:50 | PHYS DOC ---
Past Medical History Past Medical History: Anxiety, Depression, Hypertension, Migraines Additional Past Medical Histor: BORDERLINE PERSONALITY DISORDER, insomnia, social anxiety, Past Surgical History: Cholecystectomy Alcohol Use: None Drug Use: None Adult General Chief Complaint Chief Complaint: COUGH HPI HPI 36-year-old female with a cough for the past 2 weeks. She reports recently being diagnosed with a peptic ulcer. She was started on Prilosec. Her cough is non-productive. she reports a small amount of tinge of blood in her sputum. She denies fevers at home or history of asthma. No alleviating or exacerbating factors present. The patient denies unilateral leg swelling hemoptysis family or personal history of blood clotting disorders. The pt denies recent surgery. Review of systems is negative for chest pain abdominal pain nausea vomiting diaphoresis. She denies fevers or chills. All other review of systems is negative unless otherwise noted in history of present illness. ED course: 36-year-old female with cough for the past 2 weeks. Vital signs unremarkable. Pulmonary examination is clear to auscultation bilaterally. She denies chest pain. The remainder the examination is unremarkable. I prescribed the patient oral prednisone and an inhaler to be discharged home to follow-up with her primary care physician. The patient was then discharged home in stable condition to follow up with their primary care physician over the next 2-3 days. They were to return if their symptoms worsened or if they were concerned for any reason. [id number] discharge instructions and return precautions were given. Patient's questions were answered to their satisfaction. Patient is comfortable plan. Review of Systems Review of Systems SEE ABOVE. Allergies Allergies Allergies Coded Allergies Type Severity Reaction Last Updated Verified No Known Drug Allergies 02/12/17 No Physical Exam Physical Exam SEE ABOVE Constitutional: Well developed, well nourished, no acute distress, non-toxic appearance. HENT: Normocephalic, atraumatic, bilateral external ears normal, oropharynx moist, no oral exudates, nose normal. [] Eyes: PERRLA, EOMI, conjunctiva normal, no discharge. [] Neck: Normal range of motion, no tenderness, supple, no stridor. Cardiovascular:Heart rate regular rhythm, no murmur Lungs & Thorax: Bilateral breath sounds clear to auscultation [] Abdomen: Bowel sounds normal, soft, no tenderness, no masses, no pulsatile masses. [] Skin: Warm, dry, no erythema, no rash. Back: No tenderness, no CVA tenderness. [] Extremities: No tenderness, no cyanosis, no clubbing, ROM intact, no edema. [] Neurologic: Alert and oriented X 3, normal motor function, normal sensory function, no focal deficits noted. Psychologic: Affect normal, judgement normal, mood normal. [] Current Patient Data Vital Signs Vital Signs Date Time Temp Pulse Resp B/P (MAP) Pulse Ox O2 Delivery O2 Flow Rate FiO2 04/02/17 18:28 98.8 86 20 99 Room Air 98.8 EKG EKG [] Radiology/Procedures Radiology/Procedures [] Course & Med Decision Making Course & Med Decision Making Pertinent Labs and Imaging studies reviewed. (See chart for details) [] Dragon Disclaimer Dragon Disclaimer This electronic medical record was generated, in whole or in part, using a voice recognition dictation system. Departure Departure Impression: Primary Impression: Cough Disposition: HOME, SELF-CARE Condition: STABLE Referrals: NO PCP (PCP) KIRA ESPINOSA MD Patient Instructions: Cough, Adult, [id number] Additional Instructions: Thank you for allowing us to participate in your care today. Followup with your primary care physician in 3 days if your symptoms do not improve. Call your Primary Doctor tomorrow and inform them of your visit today. If you do not have a primary care provider you can ask for a list of our primary care providers. Return to the emergency department you have any new or concerning findings. This should be evaluated by the primary care physician and any necessary consulting services for continued management within a few days after discharge. Return to emergency room if you have any new or concerning symptoms including but not limited to fever, chills, nausea, vomiting, intractable pain, any new rashes, chest pain, shortness of air, uncontrolled bleeding, difficulty breathing, and/or vision loss. Scripts Prednisone (PREDNISONE) 50 Mg Tablet 1 TAB PO DAILY, #5 TAB Prov: RADHA DE LA TORRE MD 04/02/17 Albuterol Sulfate (PROAIR HFA INHALER) 8.5 Gm Hfa.aer.ad 1 PUFF INH PRN Q6HRS Y for SHORTNESS OF BREATH, #1 INHALER 0 Refills Prov: RADHA DE LA TORRE MD 04/02/17 RADHA DE LA TORRE MD Apr 02, 2017 18:50
== END 2017-04-02 19:11 | disposition home or self-care (01) ==
LOC: ER 18:16
DX: R05 Cough (principal); I10 Essential (primary) hypertension; G43.909 Migraine, unspecified, not intractable, without status migrainosus
CPT/HCPCS: 99283

== ENCOUNTER 2018-06-20 14:05 | Emergency (ER) | payer MEDICARE, MEDICAID ==
[~2018-06-20] VITALS: Ht 170.2 cm; Wt 130.6 kg
[~2018-06-20 14:05] MED LIST changes: +ALBU2.5V8 INH; +CLON1TAB11 PO; -CLON1TAB3 PO; +HYDR-3164 PO; -HYDR-971 PO; +METR-34 PO; -METR500T8 PO; -OXYC-328 PO; +OXYC1TAB22 PO; +PRED50TA PO
[2018-06-20 14:34] VITALS: BP 176/110
--- NOTE | 2018-06-20 14:59 | PHYS DOC ---
Past Medical History Past Medical History: Anxiety, Depression, Hypertension, Migraines Additional Past Medical Histor: BORDERLINE PERSONALITY DISORDER, insomnia, social anxiety, Past Surgical History: Cholecystectomy Alcohol Use: None Drug Use: None Adult General Chief Complaint Chief Complaint: COUGH HPI HPI Patient is a 37 year old female who presents with 2 weeks of cough, nasal congestion, ear pain, sore throat. Patient states when he just been taking his cough drops and NyQuil and DayQuil. Review of Systems Review of Systems Constitutional: Denies fever or chills [] Eyes: Denies change in visual acuity, redness, or eye pain [] HENT: Denies nasal congestion or sore throat [] Respiratory: Denies cough or shortness of breath [] Cardiovascular: No additional information not addressed in HPI [] GI: Denies abdominal pain, nausea, vomiting, bloody stools or diarrhea [] : Denies dysuria or hematuria [] Musculoskeletal: Denies back pain or joint pain [] Integument: Denies rash or skin lesions [] Neurologic: Denies headache, focal weakness or sensory changes [] Endocrine: Denies polyuria or polydipsia [] All other systems were reviewed and found to be within normal limits, except as documented in this note. Allergies Allergies Allergies Coded Allergies Type Severity Reaction Last Updated Verified No Known Drug Allergies 02/12/17 No Physical Exam Physical Exam Constitutional: Well developed, well nourished, no acute distress, non-toxic appearance. [] HENT: Normocephalic, atraumatic, bilateral external ears normal, oropharynx moist, no oral exudates, nose normal. [] Eyes: PERRLA, EOMI, conjunctiva normal, no discharge. [] Neck: Normal range of motion, no tenderness, supple, no stridor. [] Cardiovascular:Heart rate regular rhythm, no murmur [] Lungs & Thorax: Bilateral breath sounds clear to auscultation [] Abdomen: Bowel sounds normal, soft, no tenderness, no masses, no pulsatile masses. [] Skin: Warm, dry, no erythema, no rash. [] Back: No tenderness, no CVA tenderness. [] Extremities: No tenderness, no cyanosis, no clubbing, ROM intact, no edema. [] Neurologic: Alert and oriented X 3, normal motor function, normal sensory function, no focal deficits noted. [] Psychologic: Affect normal, judgement normal, mood normal. [] Current Patient Data Vital Signs Vital Signs Date Time Temp Pulse Resp B/P (MAP) Pulse Ox O2 Delivery O2 Flow Rate FiO2 06/20/18 14:34 98.3 84 18 176/110 (132) 98 Room Air 98.3 EKG EKG [] Radiology/Procedures Radiology/Procedures [] Course & Med Decision Making Course & Med Decision Making Patient is a 37 year old female who presents with 2 weeks of cough, nasal congestion, ear pain, sore throat. Patient states she has been taking his cough drops and NyQuil and DayQuil. Lungs are clear to auscultation all lobes. Vital signs within normal limits. Afebrile. Abdomen is soft and nontender. Patient denies shortness of breath, nausea, vomiting, diarrhea, chest pain. speaks in clear sentences. Alert and oriented. Skin pink warm and dry. Mucous membranes are moist. Patient states at times she'll cough so hard she gags and vomits. Ambulatory with a steady gait. Throat is reddened with blisters and exudates. Bilateral tympanic membranes are boggy. There are no lymph nodes felt with palpation. PERRLA. Neurologically intact. Patient is diagnosed with upper respiratory infection. Patient will be given amoxicillin and a Medrol Dosepak. Patient should follow-up with her primary care provider this coming week. Dragon Disclaimer Dragon Disclaimer This electronic medical record was generated, in whole or in part, using a voice recognition dictation system. Departure Departure Impression: Primary Impression: Upper respiratory infection Disposition: HOME, SELF-CARE Condition: STABLE Referrals: NO PCP (PCP) Patient Instructions: Sore Throat, Upper Respiratory Infection, Adult Additional Instructions: Patient should follow-up with her primary care provider this coming week. Drink plenty of fluids. Take Tylenol or ibuprofen for pain. Continue taking over-the- counter cold medicine and cough medication. Scripts Benzonatate (TESSALON PERLE) 100 Mg Capsule 1 CAP PO TID PRN for COUGH, #30 CAP Prov: VIRGIL WHITING WASTEWATER ANALYST 06/20/18 Methylprednisolone (MEDROL) 4 Mg Tab.ds.pk 1 PKG PO UD, #1 PKG Prov: VIRGIL WHITING WASTEWATER ANALYST 06/20/18 Azithromycin (AZITHROMYCIN TABLET) 250 Mg Tablet 1 PKG PO UD, #6 TAB Prov: VIRGIL WHITING APRN 06/20/18 Problem Qualifiers Primary Impression: Upper respiratory infection URI type: unspecified URI Qualified Codes: J06.9 - Acute upper respiratory infection, unspecified VIRGIL WHITING APRN Jun 20, 2018 14:59
[2018-06-20] MEDS ORDERED: AZIT250T6 PO (16:03)
[2018-06-20] MEDS ORDERED: METH4TAB2 PO (16:03)
[2018-06-20] MEDS ORDERED: BENZ100C PO (16:04)
== END 2018-06-20 16:20 | disposition home or self-care (01) ==
LOC: ER 14:05
DX: J06.9 Acute upper respiratory infection, unspecified (principal); I10 Essential (primary) hypertension; G43.909 Migraine, unspecified, not intractable, without status migrainosus
CPT/HCPCS: 87070; 87880; 99283

== ENCOUNTER 2019-11-10 13:17 | Emergency (ER) | payer MEDICARE, OTHER ==
[~2019-11-10] VITALS: Ht 170.2 cm; Wt 145.0 kg
[~2019-11-10 13:17] MED LIST changes: +AZIT250T6 PO; +BENZ100C PO; -CLON1TAB11 PO; +CLONAZEPAM1 MG PO; +METH4TAB2 PO; -NORE0.355 PO; +[UNRECOGNIZED DRUG - CODE] PO
[2019-11-10 14:10] VITALS: BP 180/110
--- NOTE | 2019-11-10 14:40 | PHYS DOC ---
Past Medical History Past Medical History: Anxiety, Bipolar, Depression, Hypertension, Migraines Additional Past Medical Histor: BORDERLINE PERSONALITY DISORDER, insomnia,anxiety; unmedicatated Past Surgical History: Cholecystectomy Smoking Status: Never Smoker Alcohol Use: None Drug Use: None General Adult EDM: Chief Complaint: EARACHE/EAR PAIN HPI: HPI: Patient is a 39 year old female presents with a one-week history of throbbing right ear pain that is moderate in severity. Patient denies any trauma to the ear but says she has pain is worse with movement of the ear. Patient has some mild decreased hearing in the ear as well. No vomiting. No fevers or cough but has had a little rhinorrhea. Patient usually cleans her ears with a washcloth but has been UNable to get wax out. Patient has mild discomfort currently and its moderate at its worst. Review of Systems: Review of Systems: Constitutional: Denies fever or chills Eyes: Denies change in visual acuity HENT: Complains of right ear pain and rhinorrhea Respiratory: Denies cough or shortness of breath Cardiovascular: Denies chest pain or edema GI: Denies abdominal pain, nausea, vomiting, or diarrhea : Denies dysuria Musculoskeletal: Denies back pain or joint pain Integument: Denies rash Neurologic: Denies headache or focal weakness Psychiatric: Denies depression or anxiety Heart Score: Risk Factors: Risk Factors: DM, Current or recent (<one month) smoker, HTN, HLP, family history of CAD, obesity. Risk Scores: Score 0 - 3: 2.5% MACE over next 6 weeks - Discharge Home Score 4 - 6: 20.3% MACE over next 6 weeks - Admit for Clinical Observation Score 7 - 10: 72.7% MACE over next 6 weeks - Early Invasive Strategies Allergies: Allergies: Allergies Coded Allergies Type Severity Reaction Last Updated Verified No Known Drug Allergies 02/12/17 No Physical Exam: PE: Constitutional: Well developed, well nourished, no acute distress, non-toxic appearance. HENT: No trismus, left TM clear. Right cerumen impaction with mild swelling of the ear canal. Right TM not visualized Eyes: Conjunctiva clear, EOMI Neck: Normal range of motion, no tenderness, supple, no stridor. Cardiovascular: Regular rate/rhythm, peripheral pulse intact, DROPHAMMER OPERATOR intact Lungs & Thorax: No respiratory distress Abdomen: No distension Skin: Diffuse: Intact, no rash Back: Full ROM Extremities: Normal inspection, no edema Neurologic: Alert and oriented X 3, normal motor function, , no focal deficits noted. Psychologic: Affect normal, judgement normal, mood normal. Current Patient Data: Vital Signs: Vital Signs Date Time Temp Pulse Resp B/P (MAP) Pulse Ox O2 Delivery O2 Flow Rate FiO2 11/10/19 14:10 99.0 78 16 180/110 (133) 97 Room Air 99.0 EKG: EKG: [] Radiology/Procedures: Radiology/Procedures: [] Course & Med Decision Making: Course & Med Decision Making Pertinent Labs and Imaging studies reviewed. (See chart for details) 39 female with right ear pain patient found to have a cerumen impaction in some mild swelling of the canal. Patient will be given drops for removal of wax as well as antibiotic drops. Patient given ENT follow-up. Prescriptions written for Cortisporin and Debrox Dragon Disclaimer: Dragon Disclaimer: This electronic medical record was generated, in whole or in part, using a voice recognition dictation system. Departure Departure Impression: Primary Impression: Right ear impacted cerumen Additional Impression: Otalgia, right ear Disposition: HOME, SELF-CARE Condition: STABLE Referrals: [facility] 2-3 days NO PCP (PCP) Patient Instructions: Cerumen Impaction Additional Instructions: EMERGENCY DEPARTMENT GENERAL DISCHARGE INSTRUCTIONS THANK YOU for coming to [facility] Emergency Department (ED) today and trusting us with your care. We trust that you had a positive experience in our Emergency Department. If you wish to speak to the department Management you can contact the supervisor beam department at . YOUR FOLLOW UP INSTRUCTIONS ARE FOLLOWS: Do you have a private doctor? If you do not have a private doctor, please ask for a resource list of physicians or clinics that may be able to assist you with follow up care. The Emergency Physician has interpreted your x-rays. The X-ray specialist will also review them. If there is a change in the findings you will be notified in 48 hours when at all possible. A lab test or lab culture may have been done, your results will be reviewed and you will be notified if you need a change in treatment. ADDITIONAL INSTRUCTIONS AND INFORMATION Your care today has been supervised by a physician who is specially trained in emergency care. Many problems require more than one evaluation for a complete diagnosis and treatment. We recommend that you schedule your follow up appointment as recommended to ens ure complete treatment of your illness or injury. If you are unable to obtain follow up care and continue to have a problem, or if your condition worsens we recommend that you return to the ED. We are not able to safely determine your condition over the phone nor are we able to give sound medical advice over the phone. For these safety reasons, if you call for medical advice we will ask you to come to the ED for further evaluation If you have any questions regarding these discharge instructions please call the ED at . SAFETY INFORMATION In the interest of safety, wellness, and injury prevention; we encourage you to wear your seatbelt, if you smoke; quit smoking, and we encourage your family to use protective helmet for bicycling and other sporting events that present an increased risk for head injury. IF YOUR SYMPTOMS WORSEN OR NEW SYMPTOMS DEVELOP, OR YOU HAVE CONCERNS ABOUT YOUR CONDITION; OR IF YOUR CONDITION WORSENS WHILE YOU ARE WAITING FOR YOUR FOLLOW UP APPOINTMENT; EITHER CONTACT YOUR PRIMARY CARE DOCTOR, THE PHYSICIAN WHOSE NAME AND NUMBER YOU WERE GIVEN, OR RETURN TO THE ED IMMEDIATELY. Justicifation of Admission Dx: Justifications for Admission: Justification of Admission Dx: N/A JORGE ROLLE MD Nov 10, 2019 14:40
== END 2019-11-10 14:50 | disposition home or self-care (01) ==
LOC: ER 13:17
DX: H61.21 Impacted cerumen, right ear (principal); H92.01 Otalgia, right ear; R60.0 Localized edema; F41.9 Anxiety disorder, unspecified; F32.9 Major depressive disorder, single episode, unspecified; I10 Essential (primary) hypertension; G43.909 Migraine, unspecified, not intractable, without status migrainosus; Z98.890 Other specified postprocedural states; Z90.49 Acquired absence of other specified parts of digestive tract
CPT/HCPCS: 99283

== ENCOUNTER 2021-07-01 13:20 | Emergency (ER) | payer MEDICARE, MEDICAID ==
[~2021-07-01] VITALS: Ht 172.7 cm; Wt 146.1 kg
[~2021-07-01 13:20] MED LIST changes: -LISI-334 PO; +LISI20TA18 PO
--- NOTE | 2021-07-01 13:59 | PHYS DOC ---
Past Medical History Past Medical History: Anxiety, Bipolar, Depression, Hypertension, Migraines Additional Past Medical Histor: BORDERLINE PERSONALITY DISORDER, insomnia,anxiety; unmedicatated Past Surgical History: Cholecystectomy Smoking Status: Never Smoker Alcohol Use: None Drug Use: None General Adult EDM: Chief Complaint: DIZZY/LIGHT HEADED HPI: HPI: Patient is a 40 year old female who presents with 6 months of intermittent migraine type headache that has become more consistent. She states she has been taking Michael aspirin for her symptoms. She states she is having nausea and at times some blurred vision today she felt slightly dizzy. She states she has been very stressed and she lives at home with her parents and takes care of her parents and their medical needs. She states her whole family has some problems and they are all looking to her to fix her problems and she is just very stressed. She states she has had migraines in the past and this feels like her usual migraine she is become more consistent. Patient has a history of borderline personality disorder, insomnia, depression, bipolar, anxiety, migraine, hypertension all of which she does not take medications for that she is supposed to. She also has a history of cholecystectomy. She denies vomiting, fever, neck pain, back pain, fall, head injury, vision loss, focal weakness, numbness or tingling, abdominal pain, diarrhea, urinary symptoms. Review of Systems: Review of Systems: Constitutional: Denies fever or chills. [] Eyes: Denies change in visual acuity. + Intermittent blurred vision [] HENT: Denies nasal congestion or sore throat. [] Respiratory: Denies cough or shortness of breath. [] Cardiovascular: Denies chest pain or edema. [] GI: Denies abdominal pain, +nausea, denies vomiting, bloody stools or diarrhea. [] : Denies dysuria. [] Musculoskeletal: Denies back pain or joint pain. [] Integument: Denies rash. [] Neurologic: + headache, denies focal weakness or sensory changes. + Intermittent dizziness [] Endocrine: Denies polyuria or polydipsia. [] Lymphatic: Denies swollen glands. [] Psychiatric: Denies depression or anxiety. [] Heart Score: C/O Chest Pain: No Allergies: Allergies: Allergies Coded Allergies Type Severity Reaction Last Updated Verified No Known Drug Allergies 02/12/17 No Physical Exam: PE: Constitutional: Well developed, well nourished, no acute distress, non-toxic appearance. [] HENT: Normocephalic, atraumatic, bilateral external ears normal, oropharynx moist, no oral exudates, nose normal. [] Eyes: PERRLA, EOMI, conjunctiva normal, no discharge. [] Neck: Normal range of motion, no tenderness, supple, no stridor. [] Cardiovascular:Heart rate regular rhythm, no murmur [] Lungs & Thorax: Bilateral breath sounds clear to auscultation [] Abdomen: Bowel sounds normal, soft, no tenderness, no masses, no pulsatile masses. [] Skin: Warm, dry, no erythema, no rash. [] Back: No tenderness, no CVA tenderness. [] Extremities: No tenderness, no cyanosis, no clubbing, ROM intact, no edema. [] Neurologic: Alert and oriented X 3, normal motor function, normal sensory function, no focal deficits noted. [] Psychologic: Affect normal, judgement normal, mood normal. [] Normal physical exam EKG: EKG: [] Radiology/Procedures: Radiology/Procedures: [] Impression: [facility] [address] [place] [address] IMAGING REPORT Signed PATIENT: LESA HANCOCK ACCOUNT: [id number] : 1980 LOCATION: ER AGE: 40 SEX: F EXAM STATUS: PRE ER ORD. PHYSICIAN: VIRGIL WHITING APRN REASON: headache, dizziness PROCEDURE: CT HEAD WO CONTRAST Exam performed: CT scan of the head without contrast. Date of Service: 07/02/2019. Comparison: None available. Clinical History: Dizziness and headache. Technique: Helical acquisitions are obtained from the foramen magnum to the vertex without intravenous administration of contrast. Findings: The ventricles are midline without evidence of dilatation. Normal ojeda-white differentiation is maintained. There is no extra axial fluid collection, intraparenchymal hemorrhage or mass lesion. The visualized portions of the orbits, paranasal sinuses and the mastoid air cells appear clear. The calvarium is intact. Impression: 1. No acute intracranial process detected. PQRS Compliance Statement: One or more of the following individualized dose reduction techniques were utilized for this examination: 1. Automated exposure control 2. Adjustment of the mA and/or kV according to patient size 3. Use of iterative reconstruction technique Electronically signed by: Mei Molina MD (07/01/2021 2:10 PM) [facility] DICTATED and SIGNED BY: MEI MOLINA MD DATE: 07/01/21 1408 Course & Med Decision Making: Course & Med Decision Making Pertinent Labs and Imaging studies reviewed. (See chart for details) See HPI. Alert and oriented x4. Ambulatory steady gait. Speaks in full clear sentences. No nystagmus. No extremity edema. Morbid obesity. Lungs are clear to auscultation in all lobes. No focal weakness. Neurologically intact. Sensations intact. Skin pink warm and dry. Blood work unremarkable. CT unremarkable. Patient states her headache has gone away and she is feeling much better. Patient states she will go find a primary care doctor tomorrow. She understands the importance of being on hypertensive medications. She was given 0.1 mg clonidine and her blood pressures come down. [] Dragon Disclaimer: Dragon Disclaimer: This electronic medical record was generated, in whole or in part, using a voice recognition dictation system. NIHSS Stroke Scale NIH Stroke Scale: NIH Stroke Scale Response (Comments) Value Level of Consciousness: 0 Alert/Responsive 0 LOC Questions: 0 Answers both correctly 0 LOC Commands: 0 Performs both tasks 0 Best Gaze: 0 Normal 0 Visual: 0 No visual loss 0 Facial Palsy: 0 Normal, symmetrical 0 Motor - Left Arm 0 No drift 0 Motor - Right Arm 0 No drift 0 Motor - Left Leg 0 No drift 0 Motor: Right Leg 0 No drift 0 Limb Ataxia: 0 Absent 0 Sensory: 0 No loss 0 Best Language: 0 Normal 0 Dysathria: 0 Normal 0 Extinction and Inattention: 0 Normal 0 Total 0 Departure Departure Impression: Primary Impression: Headache Qualified Codes: R51.9 - Headache, unspecified; G89.29 - Other chronic pain Disposition: 01 HOME / SELF CARE / HOMELESS Condition: STABLE Referrals: NO PCP (PCP) Patient Instructions: Hypertension, Migraine Headache Additional Instructions: Follow-up with primary care provider. Drink plenty of fluids to stay hydrated. Go to a doctor soon as possible. If you begin having a severe headache that will not go away, severe dizziness, focal weakness, numbness or tingling return emergency room. BAFUS,VIRGIL M EMERGENCY VETERINARY TECHNICIAN Jul 01, 2021 13:59
[2021-07-01] MEDS ORDERED: KETOROLAC 30 MG/ML VIAL. IVP ONE (14:00)
[2021-07-01] MEDS ORDERED: IV NORMAL SALINE 1000ML BAG 1,000 ML IV SCH (14:00)
[2021-07-01] MEDS ORDERED: DEXAMETHASONE SOD PHOS 20 MG/5 ML VIAL. IV ONE (14:00)
[2021-07-01] MEDS ORDERED: diphenhydrAMINE 50 MG/ML VIAL IVP ONE (14:00)
[2021-07-01] MEDS ORDERED: PROCHLORPERAZINE 10 MG/2 ML VIAL. IV ONE (14:00)
[2021-07-01 14:04] LABS: BACTERIA,URINE FEW /HPF (0-FEW); BILIRUBIN,URINE NEGATIVE (NEG); CLARITY,URINE CLEAR; COLOR,URINE YELLOW; NITRITE,URINE NEGATIVE (NEG); PH,URINE 6.5 (<5.0-8.0); PROTEIN,URINE NEGATIVE (NEG-TRACE); RBC,URINE 0 /HPF (0-2); UROBILINOGEN,URINE 0.2 mg/dL (0.2 mg/dL); WBC,URINE 0 /HPF (0-4)
[2021-07-01 14:06] LABS: BASO # 0.1 x10^3/uL (0.0-0.2); BASO % 1 % (0-3); EOS # 0.2 x10^3/uL (0.0-0.7); EOS % 4 % (0-3); HEMOGLOBIN 12.1 g/dL (12.0-15.5); LYMPH # 1.3 x10^3/uL (1.0-4.8); LYMPH % 23 % (24-48); MEAN CORPUSCULAR HEMOGLOBIN 28 pg (25-35); MEAN CORPUSCULAR HGB CONC 33 g/dL (31-37); MEAN CORPUSCULAR VOLUME 87 fL (79-100); MONO # 0.6 x10^3/uL (0.0-1.1); MONO % 9 % (0-9); NEUT # 3.7 x10^3/uL (1.8-7.7); NEUT % 63 % (31-73); PLATELET COUNT 349 x10^3/uL (140-400); RED BLOOD COUNT 4.26 x10^6/uL (3.50-5.40); RED CELL DISTRIBUTION WIDTH 17.5 % (11.5-14.5); WHITE BLOOD COUNT 5.9 x10^3/uL (4.0-11.0)
--- NOTE | 2021-07-01 14:13 | RAD ---
Exam performed: CT scan of the head without contrast. Date of Service: 07/02/2019. Comparison: None available. Clinical History: Dizziness and headache. Technique: Helical acquisitions are obtained from the foramen magnum to the vertex without intravenou s administration of contrast. Findings: The ventricles are midline without evidence of dilatation. Normal ojeda-white differentiation is maint ained. There is no extra axial fluid collection, intraparenchymal hemorrhage or mass lesion. The vi sualized portions of the orbits, paranasal sinuses and the mastoid air cells appear clear. The jahaira rium is intact. Impression: 1. No acute intracranial process detected. PQRS Compliance Statement: One or more of the following individualized dose reduction techniques were utilized for this examinat ion: 1. Automated exposure control 2. Adjustment of the mA and/or kV according to patient size 3. Use of iterative reconstruction technique Electronically signed by: Mei Molina MD (07/01/2021 2:10 PM) [facility]
[2021-07-01] MEDS ORDERED: cloNIDine HCL 0.1 MG TABLET PO ONE (15:00)
[2021-07-01 16:15] VITALS: BP 169/100
[2021-07-01 16:21] LABS: CALCIUM 8.5 mg/dL (8.5-10.1); GFR 75.1
[2021-07-01 16:27] LABS: ALBUMIN 3.3 g/dL (3.4-5.0); ALBUMIN/GLOBULIN RATIO 0.8 (1.0-1.7); TOTAL BILIRUBIN 0.3 mg/dL (0.2-1.0); TOTAL PROTEIN 7.2 g/dL (6.4-8.2)
== END 2021-07-01 16:51 | disposition home or self-care (01) ==
LOC: ER 13:20
DX: G43.909 Migraine, unspecified, not intractable, without status migrainosus (principal); F31.9 Bipolar disorder, unspecified; I10 Essential (primary) hypertension
CPT/HCPCS: 36415; 70450; 80053; 81001; 81025; 84484; 85025; 96361; 96374; 96375; 99285; J0780; J1100; J1200; J1885; J7030